=== PATIENT | female | born 1995 | race Caucasian/White ===

== ENCOUNTER 2019-12-21 00:13 | Emergency (ER) | payer SELFPAY ==
[~2019-12-21] VITALS: Ht 165.1 cm; Wt 129.1 kg
[2019-12-21 00:22] VITALS: BP 117/72; Ht 165.1 cm; Wt 129.1 kg
== END 2019-12-21 00:48 | disposition home or self-care (01) ==
LOC: D.ER 00:13
DX: Z00.00 Encounter for general adult medical examination without abnormal findings (principal)